=== PATIENT | female | born 1960 ===

== ENCOUNTER 2016-11-11 09:17 | Emergency (ER) | payer OTHER ==
[2016-11-11 09:18] VITALS: BMI 26.6
[2016-11-11] MEDS ORDERED: Piperacill/Tazo 4.5gm in NS 100 ML IVPB STA (09:35)
--- NOTE | 2016-11-11 09:55 | ED PDOC ---
Arrival/HPI - General Chief Complaint: Shortness Of Breath Time Seen by Provider: 11/11/16 09:33 Historian: Patient EM Caveat: Respiratory Distress - History of Present Illness Narrative History of Present Illness (Text): 55-year-old female, hospice patient with a history of lung cancer. Patient's son called 911 this morning because she was having difficulty breathing. States that his mom is usually short of breath at baseline, but has gotten worse this morning. Patient is unable to provide history. Past Medical History - Provider Review Nursing Documentation Reviewed: Yes - Cardiac Hx Cardiac Disorders: No - Pulmonary Hx Respiratory Disorders: Yes Hx Pneumonia: Yes - Neurological Hx Neurological Disorder: Yes Hx Dementia: Yes - HEENT Hx HEENT Disorder: No - Renal Hx Renal Disorder: No - Endocrine/Metabolic Hx Endocrine Disorders: Yes Hx Hypothyroidism: Yes - Hematological/Oncological Hx Blood Disorders: No - Integumentary Hx Dermatological Disorder: No - Musculoskeletal/Rheumatological Hx Musculoskeletal Disorders: Yes Hx Back Pain: Yes Hx Falls: Yes Hx Fractures: Yes Other/Comment: Cancer of lumbar spine - Gastrointestinal Hx Gastrointestinal Disorders: Yes Hx Constipation: Yes (opiate induced) - Genitourinary/Gynecological Hx Genitourinary Disorders: No - Psychiatric Hx Psychophysiologic Disorder: No Hx Substance Use: No - Surgical History Hx Section: Yes Hx Musculoskeletal Surgery: Yes Family/Social History Family/Social History: Unknown Family HX Smoking Status: Former Smoker Hx Alcohol Use: No Hx Substance Use: No Allergies/Home Meds Allergies/Adverse Reactions: Allergies No Known Allergies Allergy (Verified 11/11/16 09:18) Home Medications: Home Meds Medication Instructions Recorded Confirmed No Known Home Med 11/11/16 11/11/16 Review of Systems - Review of Systems Systems not reviewed;Unavailable: Acuity of Condition Physical Exam - Physical Exam Physical Exam Limitations: Altered Mental Status Vital Signs Reviewed: Yes Vital Signs Temp Pulse Resp BP Pulse Ox 11/11/16 09:17 98.7 F 131 H 22 115/70 97 Temperature: Afebrile Blood Pressure: Normal Pulse: Tachycardic Respiratory Rate: Tachypneic Appearance: Positive for: Ill-Appearing Pain Distress: None Mental Status: Positive for: Lethargic - Systems Exam Head: Present: Atraumatic, Normocephalic Pupils: Present: PERRL Extroacular Muscles: Present: EOMI Conjunctiva: Present: Normal Mouth: Present: Dry. No: Drooling, Trismus Neck: Present: Normal Range of Motion. No: MIDLINE TENDERNESS, Paraspinal Tenderness Respiratory/Chest: Present: Respiratory Distress, Rales, Tachypneic Cardiovascular: Present: Normal S1, S2, Tachycardic. No: Murmurs Abdomen: Present: Normal Bowel Sounds. No: Tenderness, Distention, Peritoneal Signs Back: Present: Normal Inspection Upper Extremity: Present: Normal Inspection. No: Cyanosis, Edema Lower Extremity: Present: Normal Inspection. No: Edema Neurological: Present: Motor Func Grossly Intact, Other (no focal neurological deficits) Skin: Present: Warm, Dry, Normal Color. No: Rashes Psychiatric: Present: Alert. No: Anxious, Agitated Medical Decision Making ED Course and Treatment: 11/11/16 09:33 A 55 year old female with history of lung cancer, on hospice, with worsening shortness of breath. Patient seen and examined immediately on arrival to the emergency department. I had a discussion with the patient's son about the necessity to intubate vs. advance directives and respecting the patient's wishes. Son states the patient is not DNR/DNI but she is in hospice care and does not want the patient to be intubated. The son is also refusing any blood work until his father gets to the emergency department. 11/11/16 10:38 Patient seen by Madhuri from Hospice, who accepts to service after a discussion with the patient's family. States to admit to hospitalist service. Decision was made to place patient in Hospice care and make her DNR/DNI. Decision made with son and his father. Father Korean speaking, son translating, states does not need official hand stripper 11:[address] Doe, accepted admission - Lab Interpretations Lab Results: 11/11/16 10:00 Lab Results 11/11/16 10:00: PT 16.7 H, INR 1.55 H, APTT 25.9 11/11/16 10:00: WBC 28.9 H*, RBC 4.69, Hgb 12.4, Hct 39.4, MCV 84.0, MCH 26.4, MCHC 31.5, RDW 20.9 H, Plt Count 158, MPV 9.9, Gran % 88.6 H, Lymph % (Auto) 7.9 L, [place] % (Auto) 3.3, Eos % (Auto) 0.0 L, Baso % (Auto) 0.2, Gran # 25.56 H , Lymph # 2.3, [place] # 1.0 H, Eos # 0.0, Baso # 0.06 - RAD Interpretation Radiology Orders: 11/11/16 09:34 ANGIO CHEST PE PROTOCOL [CT] Stat CHEST PORTABLE [RAD] Stat - Medication Orders Current Medication Orders: Albuterol Sulfate (Albuterol 0.5% Inhal Consuelo (2.5 Mg/0.5 Ml) Ud) 2.5 mg IH [id number] Scopolamine (Transderm-Scop) 1 patch TD Q3D FAWAD Discontinued Medications Albuterol Sulfate (Albuterol 0.5% Inhal Consuelo (2.5 Mg/0.5 Ml) Ud) 2.5 mg IH STAT STA Stop: 11/11/16 10:45 Last Admin: 11/11/16 10:58 Dose: 2.5 mg Sodium Chloride (Sodium Chloride 0.9%) 1,000 mls @ 1,000 mls/hr IV .Q1H STA Stop: 11/11/16 10:34 Piperacillin Sod/Tazobactam Sod (Zosyn 4.5 Gm In Ns 100ml) 4.6 gm in 102.22 mls @ 200 mls/hr IVPB STAT STA PRN Reason: Protocol Stop: 11/11/16 10:09 Iodixanol (Visipaque 320 Mg/Ml 100 Ml) Confirm Administered Dose 100 ml IV .STK- MED ONE Stop: 11/11/16 11:11 Morphine Sulfate (Morphine) 1 mg IVP STAT STA Stop: 11/11/16 10:39 Last Admin: 11/11/16 10:45 Dose: 1 mg Morphine Sulfate (Morphine) Confirm Administered Dose 2 mg .ROUTE .STK-MED ONE Stop: 11/11/16 10:45 Last Admin: 11/11/16 10:51 Dose: Disposition/Present on Arrival - Present on Arrival Any Indicators Present on Arrival: No History of DVT/PE: No History of Uncontrolled Diabetes: No Urinary Catheter: No History of Decub. Ulcer: No History Surgical Site Infection Following: None - Disposition Have Diagnosis and Disposition been Completed?: Yes Diagnosis: Hospice care Disposition: HOSPITALIZED Disposition Time: 11:43 Patient Plan: Admission Patient Problems: Current Active Problems Problem Status Onset Hospice care Acute Condition: GUARDED Referrals: [facility], [Primary Care Provider] - Follow up with primary
[2016-11-11] MEDS: TAZO IVPB STA ×2 (10:17→10:20)
[2016-11-11] MEDS: NS IVPB STA ×2 (10:17→10:20)
[2016-11-11] MEDS: PIPERACILL IVPB STA ×2 (10:17→10:20)
[2016-11-11] MEDS: Sodium Chloride 0.9% 1,000 ML IV STA ×2 (10:17→10:25)
[2016-11-11 10:32] VITALS: TEMP 98.7
[2016-11-11 10:34] LABS: BASO # 0.06 K/mm3 (0.0-2.0); BASO % 0.2 % (0.0-3.0); GRAN # 25.56 (1.4-6.5); GRAN % 88.6 % (50.0-68.0); HEMATOCRIT 39.4 % (36.0-48.0); LYMPH # 2.3 (1.2-3.4); LYMPH % 7.9 % (22.0-35.0); MEAN CORPUSCULAR HEMOGLOBIN 26.4 pg (25.0-35.0); MEAN CORPUSCULAR HGB CONC 31.5 g/dl (31.0-37.0); MEAN PLATELET VOLUME 9.9 fl (7.0-11.0); MONO % 3.3 % (1.0-6.0); PLATELET COUNT 158 10^3/uL (120.0-450.0); RED CELL DISTRIBUTION WIDTH 20.9 % (11.5-14.5)
[2016-11-11] MEDS ORDERED: Morphine 2 mg/ml ISec IVP STA (10:38)
[2016-11-11 10:42] LABS: INR 1.55 (0.93-1.08); PARTIAL THROMBOPLASTIN TIME 25.9 Seconds (23.7-30.8)
[2016-11-11] MEDS ORDERED: Albuterol 0.5% Inhal Sol (2.5 mg/0.5 ml) UD IH STA (10:44)
[2016-11-11] MEDS ORDERED: Morphine 2 mg/ml ISec ONE (10:44)
[2016-11-11] MEDS ORDERED: Scopolamine 1.5 mg/24 hr Patch TD SCH (10:45)
[2016-11-11 10:58] LABS: ADD MANUAL DIFF? NO
[2016-11-11 11:03] LABS: WHITE BLOOD COUNT 28.9 10^3/ul (4.5-11.0)
--- NOTE | 2016-11-11 11:08 | CP.PCM.CON ---
History of Present Illness - History of Present Illness History of Present Illness: Palliative consult requested by Dr Gracie Browne Reason: Goals of care/ hospice discussion 55 year old female with history of metastatic ovarian cancer .Patient was under [facility] services at home. Family called EMS when she became more short of breath and less responsive. PMHx:metastatic ovarian cancer, left humeral fracture s/p orif,constipation, HTN Family History : Non contributory. Social History: Former smoker, no alcohol or drug use. Lives with spouse. Advance Care Planning: Family did not bring documentation of DNR/DNI. Review of Systems: As per HPI, patient is dyspniec, altered unable to obtain Past Patient History - Past Social History Smoking Status: Former Smoker - CARDIAC Hx Cardiac Disorders: No - PULMONARY Hx Respiratory Disorders: Yes Hx Pneumonia: Yes - NEUROLOGICAL Hx Neurological Disorder: Yes Hx Dementia: Yes - HEENT Hx HEENT Problems: No - RENAL Hx Chronic Kidney Disease: No - ENDOCRINE/METABOLIC Hx Endocrine Disorders: Yes Hx Hypothyroidism: Yes - HEMATOLOGICAL/ONCOLOGICAL Hx Blood Disorders: No - INTEGUMENTARY Hx Dermatological Problems: No - MUSCULOSKELETAL/RHEUMATOLOGICAL Hx Musculoskeletal Disorders: Yes Hx Back Pain: Yes Hx Falls: Yes Hx Fractures: Yes Other/Comment: Cancer of lumbar spine - GASTROINTESTINAL Hx Gastrointestinal Disorders: Yes Hx Constipation: Yes (opiate induced) - GENITOURINARY/GYNECOLOGICAL Hx Genitourinary Disorders: No - PSYCHIATRIC Hx Psychophysiologic Disorder: No Hx Substance Use: No - SURGICAL HISTORY Hx Section: Yes Hx Musculoskeletal Surgery: Yes Meds Allergies/Adverse Reactions: Allergies Allergy/AdvReac Type Severity Reaction Status Date / Time No Known Allergies Allergy Verified 11/11/16 09:18 - Medications Medications: Current Medications Albuterol Sulfate (Albuterol 0.5% Inhal Consuelo (2.5 Mg/0.5 Ml) Ud) 2.5 mg IH [id number] FAWAD Scopolamine (Transderm-Scop) 1 patch TD Q3D FAWAD Physical Exam - Constitutional Appears: Cachectic, Chronically Ill - Head Exam Head Exam: NORMAL INSPECTION - Eye Exam Eye Exam: Normal appearance, PERRL - ENT Exam ENT Exam: Mucous Membranes Moist, Normal Oropharynx - Neck Exam Neck exam: Positive for: Normal Inspection - Respiratory Exam Respiratory Exam: Accessory Muscle Use, Decreased Breath Sounds - Cardiovascular Exam Cardiovascular Exam: Tachycardia, +S1, +S2 - GI/Abdominal Exam GI & Abdominal Exam: Diminished Bowel Sounds, Soft, Tenderness - Back Exam Back exam: NORMAL INSPECTION - Neurological Exam Neurological exam: Altered - Skin Skin Exam: Dry, Pallor - Additional Findings Additional findings: Palliative performance scale rating 30 % Results - Vital Signs Recent Vital Signs: Last Vital Signs Temp 98.7 F 11/11/16 09:17 Pulse 131 H 11/11/16 09:17 Resp 22 11/11/16 09:17 BP 115/70 11/11/16 09:17 Pulse Ox 97 11/11/16 09:17 - Labs Result Diagrams: 11/11/16 10:00 11/11/16 10:00 Labs: Laboratory Results - last 24 hr 11/11/16 10:00 PT 16.7 H INR 1.55 H APTT 25.9 Assessment & Plan - Assessment and Plan (Free Text) Assessment: 55 year old female with history of metastatic cancer who presented with dyspnea , tachycardia, intractable pain. Patient was receiving [facility] hospice services at home. I had a lengthy discussion with patients and son. Family understands that patient's cancer is terminal. I explained that patients symptoms were indicative that she was nearing end of life. I also explained that aggressive medical interventions would likely cause more burden and would not prevent . and son agree to make patient DNR/DNI. Offered option to provide aggressive symptom management under [facility] hospice services. Family is agreeable to this plan. [place] wall cleaner met with family regarding continuation of services. Plan: DNR/DNI Pain/dyspnea management: Morphine 1 mg IVP now Scopolamine transdermal patch now Albuterol nebulizer now and very 6 hours as needed for respiratory congestion Admit to [facility] hospice services - Date & Time Date: 11/11/16 Time: 11:00
[2016-11-11] MEDS ORDERED: Iodixanol 320 MG/ML 100 ML BOTTLE IV ONE (11:10)
[2016-11-11 11:31] LABS: ALB/GLOB RATIO 0.8 (1.1-1.8); BILIRUBIN,TOTAL 1.1 mg/dL (0.2-1.3); TOTAL PROTEIN 7.6 g/dL (5.8-8.3)
[2016-11-11 12:13] LABS: TROPONIN I 0.1 ng/mL
[2016-11-11 12:15] LABS: CALCIUM 16.3 mg/dL (8.4-10.5); POTASSIUM 5.6 mmol/L (3.6-5.0)
[2016-11-11 12:22] VITALS: BP 118/34
[2016-11-11 12:24] VITALS: PULSE 55; RESP 8; O2SAT 88
--- NOTE | 2016-11-11 13:00 | CP.PCM.PN ---
Subjective - Date & Time of Evaluation Date of Evaluation: 11/11/16 Time of Evaluation: 12:57 - Subjective Subjective: called by nurse to see pt with no respons. pt has hx of metastatic ovarian cancer , pt is not breathing,no pulse no bp . pt was hospice at 12: 45 pm. Objective - Vital Signs/Intake and Output Vital Signs (last 24 hours): Temp Pulse Resp BP Pulse Ox 98.7 F 55 L 8 L 118/34 L 88 L 11/11/16 09:17 11/11/16 12:00 11/11/16 12:00 11/11/16 11:41 11/11/16 12:00 - Medications Medications: Current Medications Albuterol Sulfate (Albuterol 0.5% Inhal Consuelo (2.5 Mg/0.5 Ml) Ud) 2.5 mg IH [id number] FAWAD Scopolamine (Transderm-Scop) 1 patch TD Q3D FAWAD Last Admin: 11/11/16 11:50 Dose: 1 patch - Labs Labs: PT 16.7 Seconds (9.9-11.8) H 11/11/16 10:00 INR 1.55 (0.93-1.08) H 11/11/16 10:00 APTT 25.9 Seconds (23.7-30.8) 11/11/16 10:00 Assessment and Plan - Assessment and Plan (Free Text) Assessment: expoired at 12 :45 pm. metastatic ovarian cancer family at bed side dr yu informed..
[2016-11-11] MEDS ORDERED: Albuterol 0.5% Inhal Sol (2.5 mg/0.5 ml) UD IH SCH (14:00)
--- NOTE | 2016-11-11 15:12 | CARD ---
APPROVED REPORT EKG Measurement Heart [id number] <Conclusion> Sinus tachycardia NSSTW changes
--- NOTE | 2016-11-11 18:01 | CP.PCM.DIS ---
<Finn Norton - Last Filed: 11/11/16 18:01> Provider - Provider Date of Admission: 11/11/16 Attending physician: Dr. Doe Primary care physician: Gonzalo Profile Required Consults: Palliative Care - Jie Paramonte Time Spent in preparation of Discharge (in minutes): 30 Hospital Course - Lab Results Lab Results: Most Recent Lab Values WBC 28.9 10^3/ul (4.5-11.0) H* 11/11/16 10:00 RBC 4.69 10^6/uL (3.5-6.1) 11/11/16 10:00 Hgb 12.4 gm/dL (12.0-16.0) 11/11/16 10:00 Hct 39.4 % (36.0-48.0) 11/11/16 10:00 MCV 84.0 fL (80.0-105.0) 11/11/16 10:00 MCH 26.4 pg (25.0-35.0) 11/11/16 10:00 MCHC 31.5 g/dl (31.0-37.0) 11/11/16 10:00 RDW 20.9 % (11.5-14.5) H 11/11/16 10:00 Plt Count 158 10^3/uL (120.0-450.0) 11/11/16 10:00 MPV 9.9 fl (7.0-11.0) 11/11/16 10:00 Gran % 88.6 % (50.0-68.0) H 11/11/16 10:00 Lymph % (Auto) 7.9 % (22.0-35.0) L 11/11/16 10:00 [place] % (Auto) 3.3 % (1.0-6.0) 11/11/16 10:00 Eos % (Auto) 0.0 % (1.5-5.0) L 11/11/16 10:00 Baso % (Auto) 0.2 % (0.0-3.0) 11/11/16 10:00 Gran # 25.56 (1.4-6.5) H 11/11/16 10:00 Lymph # 2.3 (1.2-3.4) 11/11/16 10:00 [place] # 1.0 (0.1-0.6) H 11/11/16 10:00 Eos # 0.0 (0.0-0.7) 11/11/16 10:00 Baso # 0.06 K/mm3 (0.0-2.0) 11/11/16 10:00 PT 16.7 Seconds (9.9-11.8) H 11/11/16 10:00 INR 1.55 (0.93-1.08) H 11/11/16 10:00 APTT 25.9 Seconds (23.7-30.8) 11/11/16 10:00 Sodium 134 mmol/L (132-148) 11/11/16 10:00 Potassium 5.6 mmol/L (3.6-5.0) H* 11/11/16 10:00 Chloride 94 mmol/L (98-107) L 11/11/16 10:00 Carbon Dioxide 26 mmol/L (21-33) 11/11/16 10:00 Anion Gap 20 (10-20) 11/11/16 10:00 BUN 73 mg/dL (7-21) H 11/11/16 10:00 Creatinine 1.3 mg/dL (0.5-1.4) 11/11/16 10:00 Est GFR ( Amer) 51 11/11/16 10:00 Est GFR (Non-Af Amer) 42 11/11/16 10:00 Random Glucose 142 mg/dL (70-110) H 11/11/16 10:00 Calcium 16.3 mg/dL (8.4-10.5) H* 11/11/16 10:00 Total Bilirubin 1.1 mg/dL (0.2-1.3) 11/11/16 10:00 AST 105 U/L (15-39) H 11/11/16 10:00 ALT 79 U/L (7-56) H 11/11/16 10:00 Alkaline Phosphatase 267 U/L (38-133) H 11/11/16 10:00 Lactate Dehydrogenase 2817 U/L (333-699) H 11/11/16 10:00 Total Creatine Kinase 72 U/L (35-230) 11/11/16 10:00 Troponin I 0.10 ng/mL 11/11/16 10:00 NT-Pro-B Natriuret Pep 2010 pg/mL (0-450) H 11/11/16 10:00 Total Protein 7.6 g/dL (5.8-8.3) 11/11/16 10:00 Albumin 3.4 g/dL (3.0-4.8) 11/11/16 10:00 Globulin 4.2 gm/dL 11/11/16 10:00 Albumin/Globulin Ratio 0.8 (1.1-1.8) L 11/11/16 10:00 - Hospital Course Hospital Course: 55 year old female hospice patient ([facility] services) with history of metastatic lung cancer who presented with baseline dyspnea that had worsened this morning, tachycardia, and intractable pain. Since the patient was experiencing worsening shortness of breath, ED physician had a discussion with the patient's son about the necessity to intubate vs. advance directives and respecting the patient's wishes. As per ED, son states the patient is not DNR/ DNI but she is in hospice care and does not wish for the patient to be intubated , and refusing any blood work until his father arrives to the emergency department. Decision was made to place patient in Hospice care under Jie Fragoso and make her DNR/DNI. Decision made with son and his father. Father is Maori speaking, son translating, states does not need official habitat management coordinator. Family understands that patient's cancer is terminal. Palliative care, Jie Fragoso was consulted and it was explained that patients symptoms resonated with those experienced at end of life. After much discussion, and agreement amongst all parties to make patient DNR/DNI and offer symptom management. Pain/dyspnea management: Morphine 1 mg IVP, Scopolamine transdermal patch, Albuterol nebulizer now and very 6 hours as needed for respiratory congestion. Pt was pronounced at 12:45pm by the house physician, Dr. Chavis. Family was at bedside. Discharge Plan - Follow Up Plan Condition: Disposition: HOSPITALIZED Referrals: Spectafy Scott Resobia, [Primary Care Provider] - <Fermin Chavis - Last Filed: 11/12/16 14:39> Provider - Provider Primary care physician: Gonzalo Chavez Required Hospital Course - Lab Results Lab Results: Micro Results 11/11/16 10:10 Blood-Venous Blood Culture - Preliminary NO GROWTH AFTER 24 HOURS 11/11/16 10:00 Blood-Venous Blood Culture - Preliminary NO GROWTH AFTER 24 HOURS Most Recent Lab Values WBC 28.9 10^3/ul (4.5-11.0) H* 11/11/16 10:00 RBC 4.69 10^6/uL (3.5-6.1) 11/11/16 10:00 Hgb 12.4 gm/dL (12.0-16.0) 11/11/16 10:00 Hct 39.4 % (36.0-48.0) 11/11/16 10:00 MCV 84.0 fL (80.0-105.0) 11/11/16 10:00 MCH 26.4 pg (25.0-35.0) 11/11/16 10:00 MCHC 31.5 g/dl (31.0-37.0) 11/11/16 10:00 RDW 20.9 % (11.5-14.5) H 11/11/16 10:00 Plt Count 158 10^3/uL (120.0-450.0) 11/11/16 10:00 MPV 9.9 fl (7.0-11.0) 11/11/16 10:00 Gran % 88.6 % (50.0-68.0) H 11/11/16 10:00 Lymph % (Auto) 7.9 % (22.0-35.0) L 11/11/16 10:00 [place] % (Auto) 3.3 % (1.0-6.0) 11/11/16 10:00 Eos % (Auto) 0.0 % (1.5-5.0) L 11/11/16 10:00 Baso % (Auto) 0.2 % (0.0-3.0) 11/11/16 10:00 Gran # 25.56 (1.4-6.5) H 11/11/16 10:00 Lymph # 2.3 (1.2-3.4) 11/11/16 10:00 [place] # 1.0 (0.1-0.6) H 11/11/16 10:00 Eos # 0.0 (0.0-0.7) 11/11/16 10:00 Baso # 0.06 K/mm3 (0.0-2.0) 11/11/16 10:00 PT 16.7 Seconds (9.9-11.8) H 11/11/16 10:00 INR 1.55 (0.93-1.08) H 11/11/16 10:00 APTT 25.9 Seconds (23.7-30.8) 11/11/16 10:00 Sodium 134 mmol/L (132-148) 11/11/16 10:00 Potassium 5.6 mmol/L (3.6-5.0) H* 11/11/16 10:00 Chloride 94 mmol/L (98-107) L 11/11/16 10:00 Carbon Dioxide 26 mmol/L (21-33) 11/11/16 10:00 Anion Gap 20 (10-20) 11/11/16 10:00 BUN 73 mg/dL (7-21) H 11/11/16 10:00 Creatinine 1.3 mg/dL (0.5-1.4) 11/11/16 10:00 Est GFR ( Amer) 51 11/11/16 10:00 Est GFR (Non-Af Amer) 42 11/11/16 10:00 Random Glucose 142 mg/dL (70-110) H 11/11/16 10:00 Calcium 16.3 mg/dL (8.4-10.5) H* 11/11/16 10:00 Total Bilirubin 1.1 mg/dL (0.2-1.3) 11/11/16 10:00 AST 105 U/L (15-39) H 11/11/16 10:00 ALT 79 U/L (7-56) H 11/11/16 10:00 Alkaline Phosphatase 267 U/L (38-133) H 11/11/16 10:00 Lactate Dehydrogenase 2817 U/L (333-699) H 11/11/16 10:00 Total Creatine Kinase 72 U/L (35-230) 11/11/16 10:00 Troponin I 0.10 ng/mL 11/11/16 10:00 NT-Pro-B Natriuret Pep 2010 pg/mL (0-450) H 11/11/16 10:00 Total Protein 7.6 g/dL (5.8-8.3) 11/11/16 10:00 Albumin 3.4 g/dL (3.0-4.8) 11/11/16 10:00 Globulin 4.2 gm/dL 11/11/16 10:00 Albumin/Globulin Ratio 0.8 (1.1-1.8) L 11/11/16 10:00 Attending/Attestation - Attestation I have personally seen and examined this patient.: No I have fully participated in the care of the patient.: No I have reviewed all pertinent clinical information, including history, physical exam and plan: Yes Notes (Text): Patient before I could see the patient.
== END 2016-11-11 17:30 ==
LOC: MERGE 09:17 → ED 09:17 → ERH 11:47 → UNDOADMIN 11:47 → ED 17:30
DX: Z51.5 Encounter for palliative care (principal); I10 Essential (primary) hypertension; F03.90 Unspecified dementia, unspecified severity, without behavioral disturbance, psychotic disturbance, mood disturbance, and anxiety; Z85.118 Personal history of other malignant neoplasm of bronchus and lung; Z85.43 Personal history of malignant neoplasm of ovary; Z87.01 Personal history of pneumonia (recurrent); Z87.891 Personal history of nicotine dependence; Z66 Do not resuscitate
CPT/HCPCS: 80053; 82550; 83615; 83880; 84484; 85025; 85610; 85730; 87040; 93005; 94640; 96374; 99285; J2270